=== PATIENT | female | born 1945 | race Caucasian/White ===

== ENCOUNTER 2021-10-01 22:02 | Emergency (ER) | payer MEDICARE, SELFPAY ==
--- NOTE | ~2021-10-01 | CT_ITS ---
EXAMINATION: CT abdomen pelvis wo con DATE: 10/01/2021 22:34 INDICATION: Left-sided abdominal pain TECHNIQUE: Computed tomography (CT) of the abdomen and pelvis was performed without intravenous contr ast. The dose-length product (DLP) was 1337.61 mGy-cm. Automated exposure control and iterative recon struction technique were employed. COMPARISON: None FINDINGS: There is bronchiectasis and atelectasis in the right middle lobe. The heart size is normal. The gallbladder is surgically absent. The liver, spleen, pancreas, and adrenal glands are normal. Th e left kidney is unremarkable. There is a 2 mm nonobstructing stone of the right kidney. There is neris cified atherosclerosis of the aorta and many of the other arteries. No pathologically enlarged abdomi nal or pelvic lymph nodes are identified. There is no free intraperitoneal gas or evidence of bowel o bstruction. The bladder is decompressed by Espinal catheter. The appendix is normal. There is moderate lumbar spondylosis. There is a small fat-containing umbilical hernia. IMPRESSION: 1. No CT correlate for the patient's symptoms. Reviewed, dictated and finalized at location F. NING EXECUTIVE
[2021-10-01 21:00] VITALS: BP 136/71; PULSE 86; RESP 20; TEMP 36.4; O2SAT 100
[2021-10-01 21:57] VITALS: BP 160/96; PULSE 96; RESP 16; O2SAT 100
--- NOTE | 2021-10-01 22:47 | ED.GENADULT ---
HPI - General Adult General Chief complaint: Abdominal Pain Stated complaint: abd pain, dry heaving Time Seen by Provider: 10/01/21 22:04 History of Present Illness HPI narrative: Patient 75-year-old female who presents the emergency department with chief complaint of left and abdominal pain. Patient reports she was recently in the hospital at [facility] after she had a fall patient states she was discharged to a local fdc for rehab and reports over the last few days has been having discomfort in the left side of her abdomen and the left lower chest wall. The patient reports no new falls but did report that when she fell she may have struck her left chest. Patient denies shortness of breath denies vomiting denies diarrhea. Related Data Allergies Allergy/AdvReac Type Severity Reaction Status Date / Time EAR DROPS Allergy Mild Uncoded 03/23/10 21:27 Review of Systems Review of Systems: A 10 system review of systems was completed on the patient and is negative except for what is stated in the HPI. Nursing and ancillary documentation was reviewed. Exam Narrative: GENERAL: Well-appearing, well-nourished, and in no acute distress. HEAD: Normocephalic, atraumatic. EYES: PERRLA and EOMI. ENT: Nares clear, no rhinorrhea or epistaxis. Mucous membranes moist. NECK: Supple. CHEST: Clear to auscultation. No respiratory distress. HEART: Regular rate and rhythm. No murmur heard. Normal peripheral pulses. ABDOMEN: Soft, tenderness to palpation in the left side of the abdomen, nondistended, normal active bowel sounds. EXTREMITIES: Normal range of motion. No edema. SKIN: Warm, dry, no rash. NEURO: No focal deficits. Alert and oriented x3. PSYCH: Normal mood and affect. Course Course Emergency Course: Patient was medically cleared to go back to her fdc there was difficulty finding transport back to the fdc and the patient has expressed that she does not want to go back to that facility. Case management will be asked to see the patient for assistance with her nursing facility. Vital Signs Vital signs: Vital Signs Temperature 36.4 C 10/01/21 21:00 Pulse Rate 86 10/01/21 21:00 Respiratory Rate 20 10/01/21 21:00 Blood Pressure 136/71 10/01/21 21:00 Pulse Oximetry 100 10/01/21 21:00 Temperature 36.4 C 01/11/22 21:00 Pulse Rate 91 10/02/21 05:56 Respiratory Rate 20 10/02/21 05:56 Blood Pressure 165/81 H 10/02/21 05:56 Pulse Oximetry 99 10/02/21 05:56 Medical Decision Making Vital Signs Vital Signs: Vital Signs Temperature 36.4 C 10/01/21 21:00 Pulse Rate 86 10/01/21 21:00 Respiratory Rate 20 10/01/21 21:00 Blood Pressure 136/71 10/01/21 21:00 Pulse Oximetry 100 10/01/21 21:00 Temperature 36.4 C 10/01/21 21:00 Pulse Rate 91 10/02/21 05:56 Respiratory Rate 20 10/02/21 05:56 Blood Pressure 165/81 H 10/02/21 05:56 Pulse Oximetry 99 10/02/21 05:56 Lab Data Result diagrams: 10/01/21 22:59 10/01/21 22:59 Labs: Lab Results 10/01/21 10/01/21 10/01/21 Range/Units 22:59 22:59 22:59 WBC 7.8 (4.5-10.0) K/mm3 RBC 3.45 L (4.2-5.4) M/mm3 Hgb 11.3 L (12.0-15.0) g/dL Hct 34.1 L (37.0-47.0) % MCV 98.8 (80-100) fl MCH 32.8 (26-34) pg MCHC 33.1 (32-36) g/dl RDW 14.0 (11.5-14.5) % Plt Count 209 (150-375) k/mm3 MPV 9.6 (7.4-10.4) fl Immature Gran % (Auto) 0.9 H (0-0.5) % Neut % (Auto) 67.8 (45.5-73.1) % Lymph % (Auto) 23.2 (18.3-44.2) % [place] % (Auto) 6.6 (2.6-8.5) % Eos % (Auto) 1.2 (0-4.4) % Baso % (Auto) 0.3 (0.2-1.2) % Lymph # (Auto) 1.80 (0.9-3.2) K/mm3 [place] # (Auto) 0.5 (0.1-0.6) K/mm3 Eos # (Auto) 0.1 (0-0.3) K/mm3 Baso # (Auto) 0.0 (0.0-0.1) K/mm3 Abs Immat Gran (auto) 0.07 H (0.00-0.031) K/mm3 Absolute Neuts (auto) 5.3 (1.3-6.7) K/mm3 Absolute Nucleated RBC 0.0 (0.0-0.012) K/mm3 Nucl
[2021-10-01] MEDS: MORPHINE SULFATE (*CRX) 4 MG/ML INJ IV PUSH (23:05)
[2021-10-01] MEDS: ONDANSETRON INJ 4 MG/2 ML VIAL IV PUSH (23:05)
[2021-10-01 23:16] LABS: Basophils Percent Auto 0.3 % (0.2-1.2); Eosinophils Absolute Auto 0.1 K/mm3 (0-0.3); Eosinophils Percent Auto 1.2 % (0-4.4); Hematocrit 34.1 % (37.0-47.0); Hemoglobin 11.3 g/dL (12.0-15.0); Immature Granulocyte Absolute 0.07 K/mm3 (0.00-0.031); Immature Granulocyte Percent A 0.9 % (0-0.5); Lymphocytes Percent Auto 23.2 % (18.3-44.2); Mean Corpuscular HGB Conc 33.1 g/dl (32-36); Mean Corpuscular Hemoglobin 32.8 pg (26-34); Mean Corpuscular Volume 98.8 fl (80-100); Mean Platelet Volume 9.6 fl (7.4-10.4); Monocytes Absolute Auto 0.5 K/mm3 (0.1-0.6); Monocytes Percent Auto 6.6 % (2.6-8.5); Neutrophils Absolute Auto 5.3 K/mm3 (1.3-6.7); Neutrophils Percent Auto 67.8 % (45.5-73.1); Platelet Count Result 209 k/mm3 (150-375); Red Blood Count 3.45 M/mm3 (4.2-5.4); White Blood Count 7.8 K/mm3 (4.5-10.0)
[2021-10-01 23:20] LABS: Add Urine Microscopic? YES; Appearance Urine Clear (Clear); Bilirubin Urine Negative (Negative); Blood Urine Negative (Negative); Color Urine Yellow (Yellow); Glucose Urine UA 3+ mg/dL (Negative); Ketones Urine 1+ mg/dL (Negative); Leukocyte Esterase Ur Negative LEU/UL (Negative); Mucus Urine Rare /lpf; Nitrate Urine Negative (Negative); Protein Urine Negative (Negative); RBC Urine 0-2 /hpf (0-2); Specific Grav Ur 1.014 (1.001-1.035); Squamous Epithelial Cell Urine Occasional /hpf (Few); Urobilinogen Urine Negative mg/dL (<2.0); WBC Urine 0-3 /hpf
[2021-10-01 23:30] LABS: Alanine Aminotransferase 16 U/L (4-35); Alkaline Phosphatase 82 U/L (38-126); Anion Gap 10 mmol/L (8-16); Aspartate Amino Transferase 24 U/L (14-36); Bilirubin,Total 0.6 mg/dL (0.2-1.3); Blood Urea Nitrogen 24 mg/dL (7-17); Calcium 10.1 mg/dL (8.4-10.2); Carbon Dioxide 23 mmol/L (22-30); Chloride 100 mmol/L (98-107); Estimated CRCL calculation 29 ml/min; Estimated Glomerular Filt Rate 27; Glucose 279 mg/dL (65-110); Lipase 151 U/L (23-300); Potassium 4.2 mmol/L (3.4-5.0); Sodium 133 mmol/L (137-145)
[2021-10-01 23:39] VITALS: BP 168/74; PULSE 86; RESP 16; O2SAT 98
[2021-10-02 01:45] VITALS: BP 155/89; PULSE 81; RESP 15; O2SAT 97
[2021-10-02] MEDS: BELLADONNA ALK/PHENOB ELIX 10 ML, MAG HYDROX/ALUMINUM HYD/SIMETH 30 ML, LIDOCAINE HCL 2... PO (02:37)
[2021-10-02 02:38] VITALS: BP 159/59; PULSE 84; RESP 19; O2SAT 98
--- NOTE | 2021-10-02 03:00 | PC.NURSE ---
ATTEMPTED TO CALL [facility] AT THIS TIME FOR NURSE TO NURSE REPORT, NO ANSWER AND NO VM AVAILABILITY.
--- NOTE | 2021-10-02 03:07 | PC.NURSE ---
PTS GRANDSON UNDER EMERGENCY CONTACT STATES HE IS UNABLE TO GET THE PT AND GAVE NUMBER FOR [facility] [phone] CALLED AND SPOKE TO JOEL AND STATES SHE IS UNABLE TO COME BACK TO THE REHAB FACILITY DUE THE FACT THAT SHE LEFT THE FACILITY AFTER MIDNIGHT. NEEDS INSURANCE AUTHORIZATION TO ACCEPT HER BACK. WITHOUT THE AUTHORIZATION, THEY CANNOT TAKE THE PT BACK. [facility] MADE AWARE AND [facility] PLACED ON HOLD TO DISCUSS.
--- NOTE | 2021-10-02 04:40 | PC.NURSE ---
Pt tearful on stretcher, when this RN walks to room to discuss Lawrence's (family member that agreed to come pickle sorter pt) arrival time pt began to cry loudly stating Please dont send me back. I dont wanna go back there. She is so mean to me, I am scared of her, please dont make me go. When asked who is mean to her she states That whole family, Bev my grandaughter and her mom Lawrence. She used to be my daughter in law and my son so she doesnt consider herself family anymore. They are real mean to me. Please dont make me go back, I dont wanna go back there. Pt continues to cry. Pt then states She isn't coming to get me, she would have been here already. Please dont make me go back. payable processor made aware and plan is for social work to discuss with pt at next shift (arrival in AM).
--- NOTE | 2021-10-02 05:53 | PC.NURSE ---
Upon discharge, pt had Joon bring wheelchair and van and agreed to go home w/ who she thought was her son. Pt placed in chair and taken to [facility] bus where pt became upset and started crying - she said I thought it was my son Joon, I am not going back there. I dont want to go back - I am not going to that place. Per Joon w/ [facility] transport - states I was just told to pick her up and bring her back. Is she refusing? Pt states Yes, I am, I am not going back there. Pt taken back to room, placed back in stretcher. Pt is tearful and crying. Pt states They are gonna kill me for this. Pt continues to cry. supervisor machine setter made aware. W/C returned to Joon w/ [facility].
[2021-10-02 05:56] VITALS: BP 165/81; PULSE 91; RESP 20; O2SAT 99
--- NOTE | 2021-10-02 06:02 | PC.NURSE ---
Spoke to Dwight (grandson) and requesting an update with Kina and what the plan is. Discussed at this time waiting for care coordination to come and discuss options with pt. Randa/Dwight [phone]
[2021-10-02 07:45] VITALS: BP 159/47; PULSE 98; RESP 14; O2SAT 97
--- NOTE | 2021-10-02 07:47 | PC.NURSE ---
Report to Dm at [facility]. states she will work to arrange transportation.
--- NOTE | 2021-10-02 09:53 | PCCCNOTE ---
Spoke with pt at 0730 in ED 10. Pt upset about care at [facility]. Inquired about details and pt stated that staff is good and no problems with staff. She has concerns with granddaughter that also works at [facility]. She was unable to state exact work position that she has. She is concerned that she gets mad at her and is not welcomed there. She feels that she is being pushed to hard and gets anxious. I reassured that everyone is working for her best outcome. To be able to progress and go home she would to push herself. She also had concerns about diet not being correct and needing fruit with meals. After talking with her she stated that she is ready to go back and does not want to go to another facility. I called the grandson and updated him. He was concerned about transport and I let him know that we could still utilize the [facility] transportation. He stated that he would be going to see her and would bring some additional fruit and tea.
== END 2021-10-02 08:02 ==
PROVIDERS: Emergency Medicine; Emergency Provider Emergency Medicine; PCP Internal Medicine
DX: R10.12 Left upper quadrant pain (principal)
CPT/HCPCS: 36415; 74176; 80053; 81001; 83690; 85025; 96374; 96375; 99284; A9270; J2270; J2405

== ENCOUNTER 2023-01-15 08:22 | Outpatient (CLI) | payer MEDICARE, SELFPAY ==
--- NOTE | 2023-02-06 17:26 | WPDSLEEPSTUD ---
Sleep Study Date of Study: 01/15/23 Ordering Provider: Marianne Lyn MD Interpreting Physician: Carolyn Munguia MD Sleep Study Type: Polysomnogram Height: 1.6 m Weight: 110.223 kg Body Mass Index: 43.0 Neck Circumference (inches): 18 [place]: 4 Reason for Sleep Study Witnessed apneas * 11/25/2022 a home sleep test is inconclusive, the recording time was 7 hours 43 minutes, sleep time 6 hours 35 minutes, pulse ranged from 46-90 but there was no evaluation of apneas. The saturation did not pickle maker. This was an inconclusive test. Sleep History Kina Yi is a 77-year-old woman who was referred by her operating system programmer. Her granddaughter told her that she stopped breathing in her sleep. The patient reports that she sleeps 4 or 5 hours at night. She rarely awakens from sleep feeling short of breath, awakens with heartburn belching or coughing, rarely snores and rarely snores loudly enough that others complain. She does not have trouble sleeping with a cold, does not wake up gasping for breath at night. She does not sweat excessively at night or notice her heart pounding or beating irregularly at night. She rarely falls asleep during the day. She does not fall asleep involuntarily. She does not drive so she does not fall asleep while driving. She does not have loss of muscle tone with strong emotion. She does not feel paralyzed on waking or falling asleep. She does not have vivid dreamlike scenes on waking or falling asleep. She does not feel afraid to go to sleep. She does not have nightmares. She rarely remembers her dreams. She rarely has racing thoughts. She only rarely feels sad, depressed or anxious. She does not have muscular tension. She does not notice parts of her body jerking. She occasionally kicks at night. She frequently has crawling and aching feelings in her legs and leg pain at night. She does not have morning jaw pain. She does not grind her teeth during sleep. She rarely is bothered by pain during the day, rarely awakened by pain at night. She constantly wakes up with sore achy muscles but never wakes up with pain in the neck or spine. She has fatigue and headaches. She has had fainting spells due to low blood pressure. Normal bedtime is 9:00 p.m. falling asleep within 1-2 hours. She may awaken at night to urinate, and while awake, she may play a game on her phone or listen to music. She wakes 2-3 times at night due to water pills. Sometimes she stays awake for a prolonged time after going to the bathroom. She lives alone. She estimates getting 4-6 hours of sleep at night. She takes naps during the afternoon or evening. A short nap is not refreshing. Habits: Never smoked tobacco. No caffeine, alcohol, recreational substances. [facility] Past Medical History Medical History (Updated 02/06/23 @ 17:41 by Carolyn Munguia MD) CHF (congestive heart failure) Diabetes mellitus Hypercholesterolemia Hypertension Social History Social History (Updated 02/06/23 @ 17:42 by Carolyn Munguia MD) Smoking status: Never smoker Medications Medications: Medication list from the referring doctor allopurinol 100 mg calcitriol 0.5 mcg capsule 3 times a day cyanocobalamin vitamin B12 500 mcg lozenge every 2 weeks omeprazole 40 mg delayed release meclizine 25 mg Eliquis 5 mg 1 tablet twice a day gabapentin 400 mg 2 tablets twice a day Lantus insulin NovoLog insulin vitamin D3 1250 mcg/ 70382 units once a week albuterol 2.5 mg/ 3 mils solution for nebulization Symbicort 160/4.5 1 puff twice a day duloxetine delayed release 60 mg at night Valsartan 80 mg daily furosemide 40 mg b.i.d. carvedilol 25 mg a half tablet b.i.d. Sleep Procedure This test was performed using the [employer] multiple channel system including EOG, EEG, submental EMG, EKG, nasal and oral airflow using thermistors and nasal pressure sensors, chest and abdominal belts for body position data, and pulse oximetry. Video
[2023-02-06 17:53] VITALS: BMI 43.0
--- NOTE | 2023-04-23 15:53 | SLEEP ---
new calls [phone]
== END 2023-01-16 08:17 | disposition home or self-care (01) ==
LOC: ANHCSM 09:02
PROVIDERS: PCP Internal Medicine; Visit Provider Internal Medicine Cardiovascular Disease
DX: G47.33 Obstructive sleep apnea (adult) (pediatric) (principal)
CPT/HCPCS: 95810